=== PATIENT | female | born 1950 | race Caucasian/White ===

== ENCOUNTER 2019-03-08 08:48 | Day surgery (SDC) | payer MEDICARE, OTHER ==
[~2019-03-08] VITALS: Ht 157.5 cm; Wt 69.4 kg
[~2019-03-08 08:48] MED LIST: ACETAMINOPHEN 325 MG TAB PO PRN; AMIL5TAB4 PO; AMLO25TA PO; ASPI81TA85 PO; BALANCED SALT IRRIGATION SOLUTION 500ML BAG (FOR OR EYE MACHINE) As Ordered ONE; BISO5TAB9 PO; CALC500C16 PO; CYCLOPENTOLATE 2% OPHTH SOLN 2ML BTL OS ONE; FISH1000 PO; GLIM4TAB3 PO; HEALON DUET PRO(HEALON 10MG/ML 0.55ML & HEALON ENDOCOAT 30MG/ML 0.85ML) As Ordered ONE; JANU100T PO; LEVO75TA4 PO; LIDOCAINE 1% SDV 5 ML VIAL As Ordered ONE; LIDOCAINE 3.5 % 1ML OPHTH TOPICAL GEL OU ONE; LISI-538 PO; LOVA20TA2 PO; MIDAZOLAM INJ 2 MG/2 ML VIAL (J2250) As Ordered ONE; MULTCAP PO; OFLOXACIN 0.3 % (OCUFLOX) OPTH SOL 5ML OS ONE; PHENYLEPHRINE 2.5% OPHTH SOL 2ML OS ONE; PHENYLEPHRINE HCL 10 % OPHTH. SOL 5ML OS PRN; POTA1TAB14 PO; POVIDONE-IODINE 5% OPHTH PREP SOL 30ML As Ordered ONE; PROPARACAINE 0.5% OPHTH SOL 15ML OS PRN; TROPICAMIDE 1% OPHTH SOLN 2ML OS ONE; ZYLO300T6 PO; fentaNYL 100 MCG/2 ML INJECTION (J3010) As Ordered ONE
[2019-03-08] MEDS ORDERED: CEFUROXIME 1MG/0.1ML INTRACAMERAL INJ As Ordered ONE (12:03)
[2019-03-08] MEDS ORDERED: ONDANSETRON 4MG/2ML VIAL (J2405) IV PRN (12:45)
[2019-03-08 12:50] VITALS: BP 117/59
[2019-03-08] MEDS ORDERED: TRIMETHOBENZAMIDE 300 MG CAP PO PRN (13:46)
[2019-03-08] MEDS ORDERED: AcetaZOLAMIDE 500 MG ER CAP PO ONE (13:46)
[2019-03-08] MEDS ORDERED: KETOROLAC 0.5% OPHTH SOLN OS ONE (13:46)
--- NOTE | 2019-03-09 07:34 | RO ---
DATE OF PROCEDURE: 03/08/2019 PREPROCEDURE DIAGNOSIS: Age related nuclear cataract left eye. POSTPROCEDURE DIAGNOSIS: Age related nuclear cataract left eye. PROCEDURE: Phacoemulsification and posterior chamber intraocular lens implantation. The lens used was AU00T0, 18.5 diopters. SURGEON: Ivett Wilkins MD PHD INTERNSHIP: ANESTHESIA: Topical with sedation. DESCRIPTION OF PROCEDURE: The patient was prepped and draped in the usual fashion. A lid speculum was placed between the lids. The eye was fixated. A stab incision was made to the anterior chamber, and 1% nonpreserved lidocaine was instilled. Then, viscoelastic was instilled. The eye was re-fixated. A 2.75 mm sapphire keratome was used to make a clear corneal temporal limbal incision. Capsulorrhexis was begun with a 30-gauge bent needle and then carried out in a circular fashion with capsulorrhexis forceps. The lens was hydrodissected, and then the phacoemulsification unit was used to make a groove in the nucleus in two meridians. The nucleus was then cracked into four quadrants. Each quadrant was removed with the phacoemulsification unit. Any remaining cortex was removed with the irrigation and aspiration (I and A) unit. Capsular bag was refilled with viscoelastic. A posterior chamber intraocular lens was placed in the capsular bag without difficulty. Any remaining viscoelastic was removed with the I and A unit. The wound was hydrated, and Miochol and cefuroxime were instilled into the anterior chamber. The patient tolerated the procedure well and went to the recovery room in stable condition.
== END 2019-03-08 13:03 | disposition home or self-care (01) ==
LOC: M SDC 08:48
PROVIDERS: ATTEND Ophthalmology
DX: H25.12 Age-related nuclear cataract, left eye (principal); E11.9 Type 2 diabetes mellitus without complications; I10 Essential (primary) hypertension; E78.5 Hyperlipidemia, unspecified; E03.9 Hypothyroidism, unspecified; M10.9 Gout, unspecified; K21.9 Gastro-esophageal reflux disease without esophagitis; Z85.3 Personal history of malignant neoplasm of breast; Z79.899 Other long term (current) drug therapy; Z79.82 Long term (current) use of aspirin; Z92.3 Personal history of irradiation
CPT/HCPCS: 66984; 92015; J2250; J3010

== ENCOUNTER 2023-12-21 14:30 | Emergency (ER) | payer MEDICARE, OTHER ==
[~2023-12-21] VITALS: Ht 157.5 cm; Wt 61.8 kg
[~2023-12-21 14:30] MED LIST changes: -ACETAMINOPHEN 325 MG TAB PO PRN; -ASPI81TA85 PO; +ASPI81TA86 PO; -BALANCED SALT IRRIGATION SOLUTION 500ML BAG (FOR OR EYE MACHINE) As Ordered ONE; +BISO5TAB14 PO; -BISO5TAB9 PO; -CYCLOPENTOLATE 2% OPHTH SOLN 2ML BTL OS ONE; -GLIM4TAB3 PO; +GLIM4TAB5 PO; -HEALON DUET PRO(HEALON 10MG/ML 0.55ML & HEALON ENDOCOAT 30MG/ML 0.85ML) As Ordered ONE; -LIDOCAINE 1% SDV 5 ML VIAL As Ordered ONE; -LIDOCAINE 3.5 % 1ML OPHTH TOPICAL GEL OU ONE; -LISI-538 PO; +LISI20TA33 PO; -MIDAZOLAM INJ 2 MG/2 ML VIAL (J2250) As Ordered ONE; -OFLOXACIN 0.3 % (OCUFLOX) OPTH SOL 5ML OS ONE; -PHENYLEPHRINE 2.5% OPHTH SOL 2ML OS ONE; -PHENYLEPHRINE HCL 10 % OPHTH. SOL 5ML OS PRN; +POTA-298 PO; -POTA1TAB14 PO; -POVIDONE-IODINE 5% OPHTH PREP SOL 30ML As Ordered ONE; -PROPARACAINE 0.5% OPHTH SOL 15ML OS PRN; -TROPICAMIDE 1% OPHTH SOLN 2ML OS ONE; -fentaNYL 100 MCG/2 ML INJECTION (J3010) As Ordered ONE
[2023-12-21] MEDS: LIDOCAINE 5% (LIDODERM) PATCH TD ONE (17:28)
[2023-12-21] MEDS: ACETAMINOPHEN 500 MG TAB PO ONE (17:29)
[2023-12-21 17:54] VITALS: BP 192/82; TEMP 97.6; O2SAT 99
== END 2023-12-21 17:56 | disposition home or self-care (01) ==
LOC: EDBD 14:30 → M ED 14:30
DX: M47.896 Other spondylosis, lumbar region (principal); M16.11 Unilateral primary osteoarthritis, right hip; E11.9 Type 2 diabetes mellitus without complications; I10 Essential (primary) hypertension; E78.5 Hyperlipidemia, unspecified; E03.9 Hypothyroidism, unspecified; Z85.3 Personal history of malignant neoplasm of breast; Z79.810 Long term (current) use of selective estrogen receptor modulators (SERMs); Z79.899 Other long term (current) drug therapy